=== PATIENT | female | born 1950 | race Caucasian/White ===

== ENCOUNTER 2016-09-04 02:37 | Inpatient (IN) | payer OTHER ==
[~2016-09-04] VITALS: Ht 160 cm; Wt 56.7 kg
--- NOTE | 2016-09-04 08:51 | RADIOLOGY REPORT ---
EXAMINATION: XR LUMBAR SPINE CLINICAL INFORMATION: L4-L5 decompression with transforaminal lumbar interbody fusion COMPARISON: None TECHNIQUE: Intraoperative lateral radiograph of the lumbar spine was obtained FINDINGS: The tip of a needle projects over the inferior aspect of the L3 spinous process. The lumbar vertebra have normal height. At L4-L5, there is facet arthropathy with 2 mm anterolisthesis of L4 on L5. IMPRESSION: Single intraoperative radiograph of the lumbar spine shows a needle marker overlying the L3 spinous process.
--- NOTE | 2016-09-04 10:50 | RADIOLOGY REPORT ---
EXAMINATION: XR LUMBAR SPINE done in the OR. CLINICAL INFORMATION: 65-year-old female for L4-L5 decompression with fusion. COMPARISON: Radiograph of the lateral spine done on 09/04/2016 at 8:24 a.m.. TECHNIQUE: Single crosstable lateral radiograph of the lumbosacral spine. FINDINGS: There is a radiopaque marker seen projecting at the level of the posterior part of the L4-L5 intervertebral disc space overlying the interspinous space between L4 and L5 vertebral bodies . IMPRESSION: Single radiopaque marker seen projecting at the interspinous space between L4 and L5 vertebral bodies at the level of the posterior part of L4-L5 disc space.
--- NOTE | 2016-09-04 11:46 | Operative Report ---
Operative/Inv Procedure Report Surgery Date: 09/04/16 Name of Procedure: 1. L4 pars osteotomies 2. L4/5 far lateral discectomy 3. resection of left L4/5 synovial cyst 4. L4/5 TLIF with tritanium cage, autograft 5. L4/5 psterolateral fusion with pedicle screws/rods, autograft, ICBM aspirate 6. O-arm navigation 7. right ICBM aspirate Pre-Operative Diagnosis: L4/5 spondylollisthesis, stenosis, left synovial cyst Post-Operative Diagnosis: same Estimated Blood Loss: 400cc Surgeon/Mortgage Loan Officer: JEROME LINDO,Deniz Us MD Anesthesia: general endotracheal tube Monitors: neurophysiologic monitoring IV Fluids: 2 liter crystolloid, 200cc cell saver Implants: alee Urine Output: 500cc Drains: med JOHNY Specimens: L4/5 synovial cyst Complications: none Condition: stable Operative Indication: Pt 65yo woman with intractable back and LE claudication and Left L5 radiculopathy despite a course on comprehensive conservative treatement noted to have L4/5 instability, left synovial cyst and high grade focal stenosis on imaging and now presents for operative decompression, resection of the cyst, and fusion. Operative/Procedure Note Note: Patient was taken the operating room. After appropriate patient identification, neurophysiologic monitoring leads were placed and baseline recordings were obtained. The patient then underwent the smooth induction of general endotracheal anesthesia without incident. Following intubation monitoring was stable. A Guerrier catheter was sterilely inserted. DVT prophylaxis was utilized throughout the case. Patient was given 2 g IV kefzol in Preoperative Prophylaxis. With all tubes and lines secured, the patient was then carefully turned to the prone position on the Sky frame taking care to ensure that all pressure points were well-padded. The lumbar region was widely prepped and draped usual sterile fashion using Hibiclens solution. A midline skin incision was marked and infiltrated with local anesthetic. A small gauge spinal needle was placed superficially and a localizing x-ray obtained and confirmed this to be the level of L4. Skin incision was made with a 10 blade knife. Dissection was carried down through subcutaneous tissue with the Bovie to the lumbodorsal fascia. The fascia was incised in midline and a subperiosteal dissection of the lumbar paraspinal muscles was performed bilaterally exposing underlying lamina and facet joints of L4 and L5. A Pryor elevator was placed beneath the presumed L4 lamina and intraoperative lateral lumbar x-rays obtained and confirmed this to be the correct level of L4 5. With the correct level verified, we then proceeded to expose the transverse processes of L4 and L5 bilaterally in the were decorticated with a high-speed drill. We first focused our attention to the decompression. A laminectomy and complete facetectomy and bilateral L4 pars osteotomies were performed using the Aesculap bone scalpel and completed with Kerrison rongeurs. ligamentum flavum was gently elevated off the dura with angled curettes and removed piecemeal with Kerrison rongeurs exposing the exiting L4 and traversing L5 roots. Synovial cyst on the left was carefully resected from the dura, removed with a Kerrison rongeur and passed off as specimen. The patient's more symptomatically left side, the dural sac was gently mobilized to the midline and the underlying disc annulus identified. A cuff of overlying venous epidural tissue was coagulated and divided. The annulus itself was incised with a 11 blade knife and a rectangular fashion and discectomy was performed performed with the straight and angled curettes disc space erendira and rasps. The discectomy was completed until all cartilaginous endplate was removed. The disc space was irrigated. Stab incision was made overlying the posterior right iliac crest and 10 mL of right posterior iliac crest bone marrow aspirate was then obtained using Jamshidi needle. After apropriate trials, a 12 x 28 x 11 x 6 lordotic titanium Alee cage was selected. This was filled with morcellated autograft from the decompression. Morcellated autograft with iliac crest bone marrow aspirate was packed into the anterior L4 5 disc space. The cage was then gently tamped into the L4 5 interspace under direct visualization and countersunk by several millimeters with the trajectory of the cage towards the midline. Once the cage was in position, The O arm reference arc was then fixed to the right iliac crest. AP and lateral school crossing guard films followed by a spin of the O arm were obtained. We verified the reconstructions and then proceeded with the posterior lateral arthrodesis. The remaining morcellated autograft was packed of the transverse processes bilaterally. Using the O arm navigated system, we planned entry points for pedicle screws at L4 and L5 bilaterally at the junction of the pars interarticularis transverse process and inferomedial aspect of the rostral facet. Entry points were marked with the drill. The pedicles were traversed with a gearshift, sounded with a ball-tipped probe, tapped, resounded and screws placed under direct and O arm navigation. 6.5 x 45 mm screws were placed bilaterally at L4 and 6.5 x 40 mm screws bilaterally at L5 without complication. Once all screws were in position they were stimulated. Thresholds were greater than 30 mA at all 4 locations. The O arm was then brought back into play and a second spin obtained and confirmed position of all of the instrumentation. 40 mm rods were then top loaded into the screws and locking caps placed. Screws were finally tightened with an antitorque device. The was copiously irrigated. A medium JOHNY drain was placed into the wound and secured to the skin with a 2-0 nylon suture. 1 g of IV vancomycin powder was used to coat the cut muscle and soft tissue surfaces and we then began wound closure. Deep muscle was reapproximated interrupted 0 Vicryl suture. The lumbodorsal fascia was reapproximated interrupted 0 Vicryl suture. Subcutaneous tissue is closed in layers with interrupted 2-0 Vicryl suture and the skin was closed with 4-0 Vicryl subcuticular stitch. The stab incision at the right hip was closed with a single 2-0 Vicryl suture in the dermis and hcetna. Wounds were cleaned and dried. Bacitracin and a sterile occlusive dressings were placed. Patient was then returned to the supine position awakened X pain taken to PACU in stable condition. She was noted to be moving all 4 extremities at the completion the case. All sponge nail edge encounter correct the completion of the procedure 3. Neurophysiologic monitoring was stable throughout the case. Discharge Disposition: PACU closed in layers with interrupted 2-0 Vicryl suture and the skin was closed with chetna. The stab incision at the right hip was closed with a single 2-0 Vicryl suture in the dermis and chetna. Wounds were cleaned and dried. Bacitracin and a sterile occlusive dressings were placed. Patient was then returned to the supine position awakened X pain taken to PACU in stable condition. He was noted to be moving all 4 extremities at the completion the case. All sponge nail edge encounter correct the completion of the procedure 3. Neurophysiologic monitoring was stable throughout the case.
--- NOTE | 2016-09-04 11:47 | RADIOLOGY REPORT ---
EXAMINATION: XR LUMBOSACRAL SPINE CLINICAL INFORMATION: Intraoperative plain films and CT scan. COMPARISON: Intraoperative plain films earlier 09/04/2016. TECHNIQUE: Multiple AP and a lateral view of the lumbar spine and axial CT scan of the lumbar spine were obtained intraoperatively. FINDINGS: On the initial plain films there is an intervertebral disc device at L4-L5. The subsequent AP and lateral films demonstrate placement of bilateral pedicular screws in L4 and L5. The CT images demonstrate changes from a posterior decompression at L4-L5 and placement of bone graft material along the bilateral L4 and L5 facets. There are degenerative changes at the facets at L5-S1. There is a metallic linear device which has been placed extending into the right sacroiliac joint. IMPRESSION: 1. Intraoperative plain films and CT scan during instrumented posterior decompression and fusion at L4-L5 with placement of bilateral pedicular screws and intervertebral disc device.
--- NOTE | 2016-09-04 12:07 | Operative Report ---
Operative/Inv Procedure Report Surgery Date: 09/04/16 Name of Procedure: L4 5 laminectomies bilateral, L4 5 bilateral osteotomies, for removal of synovial cyst. L4 5 TLIF. Insertion of L4 5 11 x 28 mm cage, Tritanium. L4 5 posterior lateral arthrodesis utilizing autologous bone graft and iliac crest graft aspirate. L4 5 posterior lateral instrumentation utilizing hi titanium. Procedure performed stereotactically. Pre-Operative Diagnosis: L4 5 spondylolisthesis L4 5 synovial cyst L4 5 stenosis. Post-Operative Diagnosis: Same Estimated Blood Loss: 500cc Surgeon/Fire Boat Engineer: RIKKI BALL MD, JEROME LINDO,ZORAN Lu Anesthesia: general endotracheal tube Operative/Procedure Note Note: Patient was brought to the operating room and after undergoing endotracheal intubation, Guerrier catheterization, and a posterior placenta extremities. The patient was placed in the prone position on a Sky frame back was kept flat all bony prominences well-padded. The back was washed with alcohol and Betadine x-rays used for localization. It was then reprepped again with a DuraPrep solution draped in usual sterile fashion. An incision was made between the L4 and the L5 vertebral developed down through the underlying subcutaneous teeniest tissues in the midline. Paraspinal muscles were mobilized out laterally to the level of the transverse processes bilaterally exposing the L4 and the L5 transverse processes completely. X-ray was used for localization. Working with a Masonic's bone scalpel the L4 and the superior L5 lamina were now removed bilaterally synovial cyst was away from the dura and resected. Bilateral osteotomies were performed by removing the bone completely and performing bilateral complete foraminotomies the bone was saved and morcellized and later used in the arthrodesis. This point the disc space was entered with 11 blade and was removed with a combination of straight and curved rongeurs and straight and curved curettes. The disc space was now cleared of all disc material. The endplates were now partially decorticated. Morselized bone graft was packed into the the disc space over the decorticated surfaces. A Peek cage 11 x 28 mm in length made of titanium was now centrally filled with autologous bone graft and gently tapped into the interspace. Further autologous bone graft was obtained via a separate stab incision over the iliac crest and iliac crest graft aspirate was now obtained and mixed in with a regular bone. The stereotactic coordinates were now obtained and the posterolateral spine was now cleared transverse processes were now decorticated and bone graft was placed over the decorticated surfaces between the L4 and the L5 transverse process. Under stereotactic guidance the L4 and the L5 pedicles were no accessed utilizing hi titanium instrumentation. 45 x 6.5 mm screws at L4 and 40 x 6.5 mm screws at L5. The screws were stimulated and found to stimulate above 30 mA. Copious amounts of bacitracin irrigation were used to probably [place] rods were now connected to 2 rods bilaterally. Vancomycin powder was placed at the wound and a drain was placed and removed through separate stab incision superiorly. The spinal muscles were reapproximated using interrupted 0 Vicryls inverted 3-0 Vicryl subcutaneous teeniest tissues and esophageal 4 Vicryl closure for the skin with Steri-Strips patient was taken extubated to the recovery room having tolerated procedure well.
[2016-09-04 14:50] VITALS: BP 130/78
[2016-09-04 15:00] VITALS: BP 130/78
[2016-09-04 17:00] VITALS: BP 150/80
--- NOTE | 2016-09-04 17:02 | PN- Neurosurgical ---
Subjective Subjective: Post op check Pt is awake, without complaints Pain is tolerable Mild nausea but she doesn't want medication for it at this time Has not been out of bed Objective Vital Signs and I&Os Vital Signs Date Time Temp Pulse Resp B/P B/P Pulse O2 O2 Flow FiO2 Mean Ox Delivery Rate 09/04 1500 99.2 86 16 130/78 09/04 1450 99.2 86 16 130/78 100 Room Air Intake & Output 09/04 1600 09/04 0800 09/04 0000 09/03 1600 09/03 0800 09/03 0000 Intake Total 200 Output Total 30 Balance 170 Intake, IV 80 Intake, Oral 120 Number 0 Bowel Movements Output, 30 Drainage Patient 125 lb Weight Weight Reported by Patient Measurement Method Physical Exam: VSS, afebrile General; alert and oriented times three Neuro: Moves all 4 extremities with good strength, positive sensate Wound: dressing is saturated, yuriy drain does not have any suction. Dressing changed: In repositioning the drain it is able to hold suction. There is small amount of bloody drainage in the YURIY but there was drainage also in the bedding/gown which were all changed. 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 No Antibiotics Is Patient on Antibiotics? Yes If Yes: prophylaxis
[2016-09-04 18:51] VITALS: BP 132/64
--- NOTE | 2016-09-04 20:00 | NUR ---
ASSUMED CARE OF PT AT 1945. NOTED SURG DRSG W/MODERATE AMT OF BLOODY DRAINAGE. NOTED JOHNY DRAIN NOT MAINTAINING SUCTION RESULTING IN SURGICAL SITE LEAKAGE. CALL PLACED TO SURG BIANCA MARRERO WHO ADVICED TO REINFORCE THE DRSG AND LOWER THE JOHNY DRAIN TO ALLOW IT TO DRAIN BY GRAVITY. FOLLOWED THE DIRECTIONS. DRAIN SEEMS TO MAINTAIN SUCTION A LITTLE BETTER. DRSG REINFORCED WITH HEAVY DRAINAGE DRSG. WILL CONTINUE TO MONITOR.
--- NOTE | 2016-09-04 22:03 | NUR ---
SURG BIANCA MARRERO UPDATED THAT JOHNY DRAIN IS MAINTAINING NO SUCTION AND IS KEPT BELOW THE PT TO DRAIN TO GRAVITY ADVICED. EMPTIED 35ML BLOODY DRAINAGE.
[2016-09-04 22:55] VITALS: BP 130/58
[2016-09-04 23:19] VITALS: BP 100/50
[2016-09-05] VITALS (8 sets, daily range): BP systolic 90–140; BP diastolic 50–70
--- NOTE | 2016-09-05 08:03 | PN- Neurosurgical ---
Subjective Subjective: Pt is doing well. Still with sciatica symptoms in LLE, no new neurologic complaints. Objective Vital Signs and I&Os Vital Signs Date Time Temp Pulse Resp B/P B/P Pulse O2 O2 Flow FiO2 Mean Ox Delivery Rate 09/05 0709 98.8 74 16 104/54 96 Room Air 09/05 0446 99.0 76 16 90/52 96 Room Air 09/05 0254 98.9 76 16 98/50 96 Room Air 09/05 0121 99.4 78 16 104/52 96 Room Air 09/04 2319 100.0 80 20 100/50 95 Room Air 09/04 2255 98.6 74 20 130/58 94 Room Air 09/04 1851 99.1 69 20 132/64 94 Room Air 09/04 1700 99.3 77 16 150/80 09/04 1700 99.3 77 16 150/80 94 Room Air 09/04 1500 99.2 86 16 130/78 09/04 1450 99.2 86 16 130/78 100 Room Air Intake & Output 09/05 0800 09/05 0000 09/04 1600 09/04 0800 09/04 0000 09/03 1600 Intake Total 600 450 200 Output Total 930 35 30 Balance -330 415 170 Intake, IV 500 250 80 Intake, Oral 100 200 120 Number 0 Bowel Movements Output, 30 35 30 Drainage Output, Urine 900 Patient 56.699 kg Weight Weight Reported by Patient Measurement Method Physical Exam: Pt AF, VSS awake and alert neurologically intact bilat LE Incision with saturated dressing, wound itself is c,d,i flat JOHNY suction not holding, output 30cc per shift to gravity gurpreet breakfast 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 Current Medications: Current Medications Sig/Nandini Start time Last Medication Dose Route Stop Time Status Admin Acetaminophen 650 MG Q4P PRN 09/04 1415 AC PO Bisacodyl 10 MG DAILY NEEDED PRN 09/04 1430 AC MA Cefazolin Sodium 2 GM IQ8 09/04 1600 CAN IV 09/28 0801 Cefazolin Sodium 2 GM IQ8 09/04 1600 AC 09/05 N/A 1 UNIT IV 09/07 0829 0236 Cefazolin Sodium 2,000 MG ONCE 09/04 0000 DC IV 09/04 2359 Diazepam 5 MG Q8P PRN 09/04 1430 AC PO Docusate Sodium 100 MG TID 09/04 1600 AC 09/04 PO 2151 Famotidine 20 MG BID 09/04 2200 AC 09/04 PO 2151 Heparin Sodium 5,000 UNIT Q8 09/05 0600 CAN (Porcine) IV Heparin Sodium 5,000 UNIT Q8 09/05 0600 AC 09/05 (Porcine) SC 0533 Heparin Sodium 5,000 UNIT Q8 09/04 2200 CAN (Porcine) IV Hydromorphone HCl 2 MG Q4P PRN 09/04 1445 AC IV Hydromorphone HCl 50 MG Q24H PRN 09/04 1300 AC Sodium Chloride 45 ML IV Ketorolac 15 MG Q6P PRN 09/04 1415 AC Tromethamine IV 09/08 2359 Ondansetron HCl 4 MG Q6P PRN 09/04 1715 AC IV Ondansetron HCl 4 MG Q6P PRN 09/04 1430 AC 09/04 IV 1752 Oxycodone/ 2 TAB Q4P PRN 09/04 1415 AC Acetaminophen PO Senna 374 MG AT BEDTIME NEED.. 09/04 1430 AC PO Sodium Chloride 1,000 ML Q12H 09/04 1445 DC 09/04 IV 09/05 0244 1859 Trimethobenzamide HCl 200 MG Q6P PRN 09/04 1430 AC IM Zolpidem Tartrate 2.5 MG AT BEDTIME NEED.. 09/04 1430 AC PO Assessment/Plan Assessment/Plan Pt POD1 s/p L4/5 TLIF, neurologically intact with tolerable but persistent left leg pain, similar to preop. JOHNY drain not holding suction, inspected without obvious defect. Plan: -OOB with brace -drain to gravity today -clean dry dressing applied, will monitor and change as needed -reg diet -DVT prophylaxis -cont abx -IS to bedside, use 10x per hour -dc ursula, SHIRA prn Core Measures/Miscellaneous Venous Thromboembolism VTE Risk Factors: Age > 40, Surgery VTE Contraindications: No Contraindications VTE Diagnosis: No Beta Khalida Is Beta Khalida a Home Med? No Antibiotics Is Patient on Antibiotics? Yes If Yes: prophylaxis Attending MD Review Statement Attending Statement Attending MD Statement: examined this patient, discuss w/resident/PA/RETURNED GOODS INSPECTOR, discussed with family, discussed w/nursing
[2016-09-06 02:30] VITALS: BP 130/70
[2016-09-06 07:33] VITALS: BP 130/70
[2016-09-06] MEDS ORDERED: NORCO 7.5-3251 EACH PO (07:49)
--- NOTE | 2016-09-06 07:57 | Patient Discharge Instructions ---
Discharge Instructions General Discharge Information You were seen/treated for: Spinal stenosis You had these procedures: L4 5 lumbar decompression and fusion Watch for these problems: Significantly increased pain, numbness, tingling, or weakness in extremities. Increased redness or drainage from incision Temperatures over 101 Other wound care: Daily dry dressing change Apply occlusive dressing when showering and pat dry and reapply a dry dressing Special Instructions: Ambulate wearing brace Diet Continue normal diet: Yes Activity Activity Self Limited: Yes Other activity limits: Do not drive or operate machinery while on pain medications and until seen by your surgeon Follow limitations provided by your surgeon Acute Coronary Syndrome Inclusion Criteria At DC or during hospital stay patient has or had the following: ACS DIAGNOSIS No Discharge Core Measures Meds if any: Prescribed or Continued at Discharge Meds if any: NOT Prescribed or Continued at Discharge Congestive Heart Failure Inclusion Criteria At DC or during hospital stay patient has or had the following: CHF DIAGNOSIS No Discharge Core Measures Meds if any: Prescribed or Continued at Discharge Meds if any: NOT Prescribed or Continued at Discharge Cerebrovascular accident Inclusion Criteria At DC or during hospital stay patient has or had the following: CVA/TIA Diagnosis No Discharge Core Measures Meds if any: Prescribed or Continued at Discharge Meds if any: NOT Prescribed or Continued at Discharge Venous thromboembolism Inclusion Criteria VTE Diagnosis No VTE Type NONE VTE Confirmed by (Test) NONE Discharge Core Measures - Per Current guidelines, there needs to be overlap - treatment for the first 5 days of Warfarin therapy. - If discharged on Warfarin prior to 5 days of - overlap therapy, the patient will need to be - assessed for post discharge needs including - *Post discharge parental anticoagulation - *Warfarin and/or parental anticoagulation education - *Follow up date to check INR post discharge At least 5 days overlap therapy as Inpatient No Meds if any: Prescribed or Continued at Discharge Note: Overlap Therapy is Warfarin and Anticoagulant Meds if any: NOT Prescribed or Continued at Discharge
--- NOTE | 2016-09-06 08:08 | PN- Neurosurgical ---
Subjective Subjective: Pt doing well. Reports no significant pain in back or leg. Vicoden is well tolerated and effective. Objective Vital Signs and I&Os Vital Signs Date Time Temp Pulse Resp B/P B/P Pulse O2 O2 Flow FiO2 Mean Ox Delivery Rate 09/06 0733 99.2 74 20 130/70 97 Room Air 09/06 0230 99.4 70 20 130/70 95 Room Air 09/05 2219 99.0 77 20 140/70 95 Room Air 09/05 1457 98.2 71 18 114/60 94 Room Air 09/05 1205 98.8 79 18 110/58 96 Room Air 09/05 0940 Room Air Room Air 09/05 0800 98.8 74 16 104/54 Intake & Output 09/06 0809/06 0000 09/05 1600 09/05 0800 09/05 0000 09/04 1600 Intake Total 400 750 600 450 200 Output Total 5548 141 2503 930 35 30 Balance -610 -900 -735 -330 415 170 Intake, IV 50 500 250 80 Intake, Oral 400 700 100 200 120 Number 0 Bowel Movements Output, 10 85 30 35 30 Drainage Output, Urine 1286 483 6599 900 Patient 56.699 kg Weight Weight Reported by Patient Measurement Method Physical Exam: Pt AF, VSS Incision is intact and without active drainage. Neuro exam is stable bilat LE ambulating on own in brace gurpreet po well, voiding spontaneously JOHNY dc'd earlier with 10cc over night Current Medications: Current Medications Sig/Nandini Start time Last Medication Dose Route Stop Time Status Admin Acetaminophen 650 MG Q4P PRN 09/04 1415 AC PO Acetaminophen/ 1 TAB Q4P PRN 09/05 0815 AC 09/05 Hydrocodone Bitart PO 1045 Acetaminophen/ 2 TAB Q4P PRN 09/05 0815 AC 09/06 Hydrocodone Bitart PO 0557 Bisacodyl 10 MG DAILY NEEDED PRN 09/04 1430 AC MO Cefazolin Sodium 2 GM IQ8 09/04 1600 AC 09/06 N/A 1 UNIT IV 09/07 0829 0031 Diazepam 5 MG Q8P PRN 09/04 1430 DC PO Docusate Sodium 100 MG TID 09/04 1600 AC 09/05 PO 2044 Famotidine 20 MG BID 09/04 2200 AC 09/05 PO 204 Heparin Sodium 5,000 UNIT Q8 09/05 0600 AC 09/06 (Porcine) SC 0556 Hydromorphone HCl 1 MG Q2-3 HRS NEEDED.. 09/05 0815 AC IV Hydromorphone HCl 2 MG Q4P PRN 09/04 1445 DC IV Hydromorphone HCl 50 MG Q24H PRN 09/04 1300 DC Sodium Chloride 45 ML IV Ketorolac 15 MG Q6P PRN 09/04 1415 DC Tromethamine IV 09/08 2359 Methocarbamol 1,000 MG TID PRN 09/05 0815 AC PO Ondansetron HCl 4 MG Q6P PRN 09/04 1715 AC IV Ondansetron HCl 4 MG Q6P PRN 09/04 1430 AC 09/04 IV 1752 Oxycodone/ 2 TAB Q4P PRN 09/04 1415 DC Acetaminophen PO Senna 374 MG AT BEDTIME NEED.. 09/04 1430 AC PO Trimethobenzamide HCl 200 MG Q6P PRN 09/04 1430 AC IM Zolpidem Tartrate 2.5 MG AT BEDTIME NEED.. 09/04 1430 AC PO Assessment/Plan Assessment/Plan Pt POD2 s/p L4/5 TLIF and resection of synovial cyst. Doing well and neurologically stable. Plan: -home today -dc instructions discussed with pt -fu with me 2 weeks -brace when OOB -cover incision occlusively for showers -no lift more than 5lbs, avoid twisting, bending, push/pulling Core Measures/Miscellaneous Venous Thromboembolism VTE Risk Factors: Age > 40, Surgery VTE Contraindications: No Contraindications VTE Diagnosis: No Beta Khalida Is Beta Khalida a Home Med? No Antibiotics Is Patient on Antibiotics? Yes If Yes: prophylaxis Attending MD Review Statement Attending Statement Attending MD Statement: examined this patient, discuss w/resident/PA/[employer]IV[employer], discussed w/nursing
== END 2016-09-06 12:34 | DRG 460 ==
LOC: SDA 02:37 → ENRESERV 12:59 → 2NA 14:38 → ENPENDDIS 09-06 08:25 → 2NA 09-06 12:34
PROVIDERS: ADMIT Neurological Surgery
PROC: 0QB20ZZ Excision of Right Pelvic Bone, Open Approach (ICD-10-PCS; principal; 2016-09-04)
PROC: 0ST20ZZ Resection of Lumbar Vertebral Disc, Open Approach (ICD-10-PCS; principal; 2016-09-04)
PROC: 00BY0ZZ Excision of Lumbar Spinal Cord, Open Approach (ICD-10-PCS; principal; 2016-09-04)
PROC: 4A11X4G Monitoring of Peripheral Nervous Electrical Activity, Intraoperative, External Approach (ICD-10-PCS; principal; 2016-09-04)
PROC: 0SG00AJ Fusion of Lumbar Vertebral Joint with Interbody Fusion Device, Posterior Approach, Anterior Column, Open Approach (ICD-10-PCS; principal; 2016-09-04)
DX: M48.06 Spinal stenosis, lumbar region (principal); M71.38 Other bursal cyst, other site; M43.16 Spondylolisthesis, lumbar region; Z85.828 Personal history of other malignant neoplasm of skin; Z87.891 Personal history of nicotine dependence
CPT/HCPCS: 2NAP; 36415; 72020; 72100; 87086; 88304; 97110-GO; 97116-GO; 97161-GP; C9290; J0131; J0690; J1170; J1644; J2405; J3250; J3370